=== PATIENT | female | born 2000 | race Caucasian/White ===

== ENCOUNTER 2023-07-19 07:52 | Day surgery (SDC) | payer OTHER ==
[~2023-07-19] VITALS: Ht 165.1 cm; Wt 48.5 kg
[2023-07-19] MEDS ORDERED: JUNEL FE 1/20 21 TAB PO (08:19)
[2023-07-19] MEDS ORDERED: LINZESS145CAP PO (08:20)
[2023-07-19 09:54] VITALS: BP 104/77; PULSE 73; TEMP 98.1
[2023-07-19 10:09] VITALS: BP 104/78; PULSE 79
[2023-07-19 10:16] VITALS: BP 112/78; PULSE 89; TEMP 98.2
--- NOTE | 2023-07-19 10:30 | NUR ---
0954-PATIENT ARRIVED VIA CART TO [facility], ALERT ON ARRIVAL. PATIENT AMBULATED WITH ASSISTANCE TO RECLINER, WARM BLANKETS PROVIDED. VITAL SIGNS TAKEN, VSS. PT DENIES PAIN OR NAUSEA. REPORT OBTAINED FROM JUAN CARLOS GALVEZ. UPDATE GIVEN TO PATIENT AND BOYFRIEND AT BEDSIDE. 1009-PATIENT TOLERATED PO INTAKE WELL, DENIES COMPLAINTS. VSS. DR. RAUSCH AT BEDSIDE TO DISCUSS PROCEDURE AND PLAN OF CARE. DISCHARGE INSTRUCTIONS REVIEWED ,QUESTIONS INVITED. IV CATHETER DISCONTINUED, TIP INTACT. PRESSURE HELD AND BANDAGE APPLIED. PATIENT DRESSED INDEPENDENTLY 1019-PATIENT DISCHARGED HOME TO [facility] VIA WHEELCHAIR, ACCOMPANIED BY SIGNIFICANT OTHER. ALL BELONGINGS AND DC PAPERWORK SENT WITH PT.
== END 2023-07-19 10:19 | disposition home or self-care (01) ==
LOC: SDCO 07:52
DX: K59.04 Chronic idiopathic constipation (principal); Z98.890 Other specified postprocedural states; Z87.19 Personal history of other diseases of the digestive system; Z79.899 Other long term (current) drug therapy; Z83.79 Family history of other diseases of the digestive system
CPT/HCPCS: J2704; J7120